=== PATIENT | male | born 1995 | race Hispanic/Latino ===

== ENCOUNTER 2018-08-18 03:10 | Emergency (ER) | payer BC ==
[2018-08-18 03:17] VITALS: BP 114/76; PULSE 115; RESP 22; TEMP 98.3; O2SAT 96
[2018-08-18] MEDS ORDERED: Sodium Chloride 0.9% 1,000 ML IV STA (03:37)
[2018-08-18 04:17] LABS: BASO % 0.1 % (0.0-2.0); EOS % 0.1 % (0.0-4.0); HEMOGLOBIN 15.7 g/dL (12.0-18.0); LYMPH # 0.5 K/uL (1.0-4.3); LYMPH % 3.4 % (20.0-40.0); MEAN CORPUSCULAR HEMOGLOBIN 30.1 pg (27.0-31.0); MEAN CORPUSCULAR HGB CONC 34.2 g/dL (33.0-37.0); MEAN PLATELET VOLUME 7.9 fl (7.2-11.7); MONO # 0.5 K/uL (0.0-0.8); MONO % 3.4 % (0.0-10.0); NEUT # 14.3 K/uL (1.8-7.0); PLATELET COUNT 217 K/uL (130-400); RBC 5.21 Mil/uL (4.40-5.90); RED CELL DISTRIBUTION WIDTH 13.1 % (11.5-14.5); WHITE BLOOD COUNT 15.3 K/uL (4.8-10.8)
--- NOTE | 2018-08-18 04:22 | ED PDOC ---
HPI: Abdomen Time Seen by Provider: 08/18/18 03:17 Chief Complaint (Nursing): Abdominal Pain Chief Complaint (Provider): Abdominal Pain History Per: Patient History/Exam Limitations: no limitations Onset/Duration Of Symptoms: Days (x1) Location Of Pain/Discomfort: Other (Mid abdominal pain) Associated Symptoms: Nausea, Vomiting, Diarrhea. denies: Fever, Urinary Symptom s Additional Complaint(s): 23 years old male with no significant PMHx presents to ER for evaluation of mid abdominal pain associated with multiple episodes of nausea, vomiting and diarrhea onset one day. Patient reports approximately 12 episodes of each, non bloody non bilious vomiting and watery diarrhea. He states his vomitus is bilious now on the last episode of vomiting. Patient reports he tried to take loperamide but was unable to because of vomiting. He states he is not sure if he ate something spoiled but reports everything he ate today was well cooked. Patient denies fever, urinary symptoms or migration of abdominal pain. PMD: None provided Past Medical History Reviewed: Historical Data, Nursing Documentation, Vital Signs Vital Signs: Last Vital Signs Temp 98.3 F 08/18/18 03:15 Pulse 115 H 08/18/18 03:15 Resp 22 08/18/18 03:15 BP 114/76 08/18/18 03:15 Pulse Ox 96 08/18/18 03:15 Primary Care Provider: FAMILY PROVIDER,NO - Medical History PMH: No Chronic Diseases - Surgical History Surgical History: No Surg Hx - Family History Family History: States: Unknown Family Hx - Home Medications Home Medications: Ambulatory Orders Medication Instructions Recorded Ondansetron ODT [Zofran ODT] 4 mg PO Q8 PRN #12 odt 08/18/18 - Allergies Allergies/Adverse Reactions: Allergies Allergy/AdvReac Type Severity Reaction Status Date / Time No Known Allergies Allergy Verified 08/18/18 03:14 Review of Systems ROS Statement: Except As Marked, All Systems Reviewed And Found Negative Constitutional: Negative for: Fever Gastrointestinal: Positive for: Nausea, Vomiting, Abdominal Pain (mid), Diarrhea Physical Exam - Reviewed Nursing Documentation Reviewed: Yes Vital Signs Reviewed: Yes - Physical Exam Appears: Positive for: Well, No Acute Distress Head Exam: Positive for: ATRAUMATIC, NORMOCEPHALIC Skin: Positive for: Normal Color, Warm, Dry Eye Exam: Positive for: Normal appearance, EOMI, PERRL ENT: Positive for: Normal ENT Inspection Neck: Positive for: Normal, Painless ROM, Supple Cardiovascular/Chest: Positive for: Regular Rate, Rhythm. Negative for: Murmur Respiratory: Positive for: Normal Breath Sounds. Negative for: Respiratory Distress Gastrointestinal/Abdominal: Positive for: Tenderness (mild right mid quadrant). Negative for: Guarding, Rebound, Other (Right lower quadrant or right upper quadrant tenderness) Back: Positive for: Normal Inspection. Negative for: L CVA Tenderness, R CVA Tenderness Extremity: Positive for: Normal ROM. Negative for: Pedal Edema, Deformity Neurological/Psych: Positive for: Awake, Alert, Oriented (x3) - Laboratory Results Result Diagrams: 08/18/18 04:10 08/18/18 04:10 - ECG O2 Sat by Pulse Oximetry: 96 (RA) Pulse Ox Interpretation: Normal Medical Decision Making Medical Decision Making: Time: 336 A/P: Likely gastroenteritis --Not concerned for acute appendicitis or gallbladder disease at this time --Will treat symptomatically and reevaluate 530AM --PAtient appears significantly improved, no longer vomiting, drinking gingerale --States pain is minimal at this time --Advised rest, fluids, zofran as needed --Return precautions advised Scribe Attestation: Documented by Jessica Duarte, acting as a scribe for Andrew Quintana MD. Provider Scribe Attestation: All medical record entries made by the Scribe were at my direction and personally dictated by me. I have reviewed the chart and agree that the record accurately reflects my personal performance of the history, physical exam, medical decision making, and the department course for this patient. I have also personally directed, reviewed, and agree with the discharge instructions and disposition. Disposition - Clinical Impression Clinical Impression: Gastroenteritis - Patient ED Disposition Is Patient to be Admitted: No - Disposition Referrals: Alessandro English [Outside] Disposition: Routine/Home Disposition Time: 05:32 Condition: IMPROVED Additional Instructions: If your symptoms don't improve, or the abdominal pain worsens, or if you have uncontrolled vomiting or any other concerning symptoms, please return to the E.R. Prescriptions: Ondansetron ODT [Zofran ODT] 4 mg PO Q8 PRN #12 odt PRN Reason: Nausea/Vomiting Instructions: Gastroenteritis (ED) Forms: Partly [employer] ([place])
[2018-08-18 04:26] LABS: ALB/GLOB RATIO 1.3 (1.0-2.1); ALBUMIN 5.5 g/dL (3.5-5.0); ALT/SGPT 35 U/L (21-72); AST/SGOT 42 U/L (17-59); BLOOD UREA NITROGEN 16 mg/dl (9-20); CALCIUM 10.5 mg/dL (8.4-10.2); GFR NON-AFRICAN AMERICAN > 60; LIPASE 48 U/L (23-300)
[2018-08-18 05:27] LABS: BANDS 8 % (0-2); BASOPHIL 1 % (0-2); LYMPHOCYTE 3 % (20-50); MONOCYTE 2 % (0-10); NEUTROPHIL 85 % (42-75); REACTIVE LYMPHOCYTES 1 % (0-0); TOTAL CELLS COUNTED 100
[2018-08-18 05:28] LABS: ANISOCYTOSIS SLIGHT; PLATELET CLUMPS PRESENT; PLATELET ESTIMATE NORMAL (NORMAL); STOMATOCYTES SLIGHT
== END 2018-08-18 06:09 | disposition home or self-care (01) ==
LOC: H.ER 03:10
DX: K52.9 Noninfective gastroenteritis and colitis, unspecified (principal); Z79.899 Other long term (current) drug therapy
CPT/HCPCS: 80053; 83690; 85025; 96361; 96374; 96375; 99283; J1885; J2405; J7030